=== PATIENT | female | born 1985 | race African-American/Black ===

== ENCOUNTER 2022-09-09 09:19 | Emergency (ER) | payer BC ==
[~2022-09-09] VITALS: Ht 170.2 cm; Wt 54.4 kg
--- NOTE | 2022-09-09 09:32 | NUR ---
Patient walked into ER for complaint of pulsating head pain. Patient stopped taking Zyprexa medication about two months ago. She began to take the medication again this morning. She also complains that the auditory hallucinations which she described as "echoes of voices" are louder and more prominent.
--- NOTE | 2022-09-09 09:32 | NUR ---
Patient denies SI.
[2022-09-09 10:04] LABS: HEMATOCRIT 33.7 % (31.2-41.9); MEAN CORPUSCULAR HEMOGLOBIN 23.2 uug (24.7-32.8); MEAN CORPUSCULAR VOLUME 72.3 fL (75.5-95.3); PLATELET COUNT (AUTO) 191 K/uL (179-408)
[2022-09-09 10:17] LABS: ALANINE AMINOTRANSFERASE 11 U/L (14-59); ALKALINE PHOSPHATASE 40 U/L (50-136); ASPARTATE AMINOTRANSFERASE 7 U/L (15-37); BILIRUBIN,DIRECT 0.3 mg/dL (0.0-0.2); BILIRUBIN,TOTAL 1.6 mg/dL (0.2-1.0); CARBON DIOXIDE 24 mmol/L (21-32); CHLORIDE 105 mmol/L (98-107); CREATININE 0.8 mg/dL (0.6-1.3); ETHANOL < 3 MG/DL (0-0); GLUCOSE 91 mg/dL (74-106); TOTAL PROTEIN, SERUM 7.6 g/dL (6.4-8.2); UREA NITROGEN, BLOOD 8 mg/dL (7-18)
[2022-09-09 10:20] LABS: ACETAMINOPHEN < 2.0 ug/mL (10-30)
--- NOTE | 2022-09-09 10:24 | NUR ---
Urine specimen sent to the lab
--- NOTE | 2022-09-09 10:42 | NUR ---
[facility] consult requested for a patient in the ER. Patient is a 37-year-old black female. Patient presents with anxious mood and congruent affect. Patient states she does not have a primary contact. Patient states she is currently living at [address] [place] [address] in an [address]. Patient states she is currently not driving and is unemployed. Patient denies a history of substance abuse and there is no toxicology report. Patient states she has a history of schizophrenia and is taking Zyprexa. Patient states she recently went to [facility] ([phone]) for 3 weeks. Patient denies suicidal or homicidal ideation. Patient denies visual hallucinations, but states she is having minor auditory hallucinations. [facility] provided the patient with the mental health resource for [facility] [address] [id number] ([phone]). Patients plan for discharge is to take an Uber to go to [facility] [address] [id number] ([phone]) at discharge.
[2022-09-09 10:54] LABS: *AMPHETAMINE, URINE NEGATIVE (NEGATIVE); *CANNABINOID, URINE POSITIVE (NEGATIVE); *COCCAINE, URINE NEGATIVE (NEGATIVE); *PHENCYCLIDINE SCREEN,URINE NEGATIVE (NEGATIVE)
[2022-09-09 11:00] LABS: *BILIRUBIN,URIN NEGATIVE (NEGATIVE); *BLOOD, URINE NEGATIVE (NEGATIVE); *CLARITY,URINE CLEAR (CLEAR); *COLOR,URINE YELLOW (YELLOW); *KETONES,URINE 1+ (NEGATIVE); LEUKOCYTE ESTERASE ,URINE TRACE (NEGATIVE); NITRITE, URINE NEGATIVE (NEGATIVE); UGLUCOSE NEGATIVE (NEGATIVE)
--- NOTE | 2022-09-09 11:50 | NUR ---
Patient discharged to home in stable condition. Written and verbal after care instructions given. Patient verbalizes understanding of instructions. Stressed follow up or return to ER for worsening s/s.
[2022-09-09 12:06] VITALS: BP 112/72
[2022-09-09 12:27] LABS: BACTERIA,URINE FEW /HPF (NONE SEEN); RBC,URINE 0-3 /HPF (0-3); SQUAMOUS EPITHELIAL CELL,UR MANY /HPF (NONE SEEN); WBC,URINE 0-3 /HPF (0-3)
== END 2022-09-09 11:50 | disposition home or self-care (01) ==
LOC: ER 09:19
DX: F20.9 Schizophrenia, unspecified (principal)
CPT/HCPCS: 36415; 85025; A4663; G0480